=== PATIENT | female | born 1985 | race Caucasian/White ===

== ENCOUNTER 2020-02-21 12:27 | Outpatient (CLI) | payer OTHER, SELFPAY ==
--- NOTE | ~2020-02-21 | XR_ITS ---
EXAMINATION: XR foot RT standing 2V DATE: 02/21/2020 12:52 INDICATION: Unspecified osteoarthritis, unspecified site. TECHNIQUE: 2 views of right foot standing were obtained. COMPARISON: None. FINDINGS: Bone alignment is normal. No fracture. Joint spaces are well maintained. IMPRESSION: 1. Normal right foot. Reviewed, dictated and finalized at location A. IMPRESSION: 1. Normal right foot.
--- NOTE | ~2020-02-21 | XR_ITS ---
EXAMINATION: XR hand BI arthritis min 3V DATE: 02/21/2020 12:51 INDICATION: Unspecified osteoarthritis, unspecified site. TECHNIQUE: 4 views of right hand and 4 views of left hand on a total of 7 radiographs were obtained. COMPARISON: None. FINDINGS: RIGHT HAND: Bone alignment is normal. No fracture. Joint spaces are well maintained. LEFT HAND: Bone alignment is normal. No fracture. Joint spaces are well maintained. IMPRESSION: 1. No arthritis. Reviewed, dictated and finalized at location A. IMPRESSION: 1. No arthritis.
--- NOTE | ~2020-02-21 | XR_ITS ---
EXAMINATION: XR foot LT standing 2V DATE: 02/21/2020 12:52 INDICATION: Unspecified osteoarthritis, unspecified site. TECHNIQUE: 2 views of left foot were obtained. COMPARISON: None. FINDINGS: Bone alignment is normal. No fracture. Joint spaces are well maintained. IMPRESSION: 1. Normal left foot. Reviewed, dictated and finalized at location A. IMPRESSION: 1. Normal left foot.
[2020-02-21 13:32] LABS: Hematocrit 46.9 % (37.0-47.0); Hemoglobin 15.4 g/dL (12.0-15.0); Mean Corpuscular HGB Conc 32.8 g/dl (32-36); Mean Corpuscular Hemoglobin 31.2 pg (26-34); Mean Corpuscular Volume 95.1 fl (80-100); Mean Platelet Volume 12.3 fl (7.4-10.4); Platelet Count Result 136 k/mm3 (150-375); Red Blood Count 4.93 M/mm3 (4.2-5.4); White Blood Count 5.6 K/mm3 (4.5-10.0)
[2020-02-21 13:48] LABS: Alanine Aminotransferase 44 U/L (4-35); Albumin Level 5.1 g/dL (3.5-5.1); Alkaline Phosphatase 82 U/L (38-126); Aspartate Amino Transferase 38 U/L (14-36); Bilirubin,Total 0.6 mg/dL (0.2-1.3); Blood Urea Nitrogen 22 mg/dL (7-17); Calcium 9.6 mg/dL (8.4-10.2); Carbon Dioxide 27 mmol/L (22-30); Chloride 103 mmol/L (98-107); Estimated Glomerular Filt Rate > 60; Glucose 99 mg/dL (65-105); Potassium 4.6 mmol/L (3.4-5.0); Rheumatoid Factor 33.5 IU/ML (<12); Sodium 138 mmol/L (137-145); Uric Acid 4.5 mg/dL (2.5-7.5)
[2020-02-21 13:49] LABS: CRP < 0.5 mg/dL (<1.0); Uric Acid 4.5 mg/dL (2.5-7.5)
[2020-02-21 14:17] LABS: Erythrocyte Sedimentation Rate 16 mm/hr (0-20)
[2020-02-24 21:21] LABS: ANA Cascade Screen Negative (Negative)
[2020-02-25 05:27] LABS: Thyroid Peroxidase Antibodies 3 IU/mL (<9)
[2020-02-26 01:19] LABS: Thyroglobulin 7.8 ng/mL (2.8-40.9); Thyroglobulin Antibodies <1 IU/mL (<=1)
[2020-02-27 11:43] LABS: Anti Cyclic Citrullinated Pept <16 Units (<20)
== END 2020-02-21 12:28 | disposition home or self-care (01) ==
PROVIDERS: PCP Family Medicine; Visit Provider Internal Medicine
DX: M19.90 Unspecified osteoarthritis, unspecified site (principal); M79.641 Pain in right hand; M79.642 Pain in left hand
CPT/HCPCS: 36415; 73130; 73620; 80053; 84432; 84443; 84550; 85027; 85652; 86038; 86140; 86200; 86376; 86430; 86800

== ENCOUNTER 2020-09-24 10:01 | Outpatient (CLI) | payer OTHER, SELFPAY ==
--- NOTE | ~2020-09-24 | XR_ITS ---
EXAMINATION: XR knee LT 3V EXAM DATE: 09/24/2020 10:16 INDICATION: M06.041 - Rheumatoid arthritis without rheumatoid factor. TECHNIQUE: Three projections of the left knee. There is no prior study for comparison. FINDINGS: No evidence osteochondral defect or joint body in the left knee joint. There are no acute fractures or dislocations identified. There is no subcutaneous gas. The soft tissue is unremarkabl e. There are no radiopaque foreign bodies. No joint effusion. IMPRESSION: 1. Left knee exam without acute osseous findings. Reviewed, dictated and finalized at location B. NITIES TEACHER
== END 2020-09-24 10:02 | disposition home or self-care (01) ==
PROVIDERS: PCP Family Medicine; Visit Provider Internal Medicine
DX: M06.041 Rheumatoid arthritis without rheumatoid factor, right hand (principal); M06.042 Rheumatoid arthritis without rheumatoid factor, left hand
CPT/HCPCS: 73562

== ENCOUNTER 2020-10-15 10:06 | Outpatient (CLI) | payer OTHER, SELFPAY ==
--- NOTE | ~2020-10-15 | MR_ITS ---
EXAMINATION: MR hand LT wo con DATE: 10/15/2020 11:39 INDICATION: Rheumatoid arthritis without rheumatoid factor. TECHNIQUE: Magnetic resonance imaging (MRI) of the left hand was performed without intravenous contra st. Sequences included axial, coronal, and sagittal T1-weighted FSE and T2-weighted FS FSE. COMPARISON: Left hand radiograph 02/21/2020 FINDINGS: Bone alignment is normal. No fracture. Bone marrow signal intensity is normal. The joint sp aces are normal. The flexor and extensor tendons are normal. IMPRESSION: 1. Normal left hand. Reviewed, dictated and finalized at location A. ETIC TECHNICIAN IMPRESSION: 1. Normal left hand.
--- NOTE | ~2020-10-15 | MR_ITS ---
EXAMINATION: MR hand RT wo con DATE: 10/15/2020 11:40 INDICATION: Rheumatoid arthritis without rheumatoid factor. TECHNIQUE: Magnetic resonance imaging (MRI) of the right hand was performed without intravenous contr ast. Sequences included axial, coronal, and sagittal T1-weighted FSE and T2-weighted FS FSE COMPARISON: Left hand radiograph 02/21/2020 FINDINGS: Bone alignment is normal. No fracture. Bone marrow signal intensity is normal. Joint spaces are normal. The flexor and extensor tendons are normal. IMPRESSION: 1. Normal right hand. Reviewed, dictated and finalized at location A. RER PIE BAKERY IMPRESSION: 1. Normal right hand.
== END 2020-10-15 10:07 | disposition home or self-care (01) ==
PROVIDERS: PCP Family Medicine; Visit Provider Internal Medicine
DX: M06.041 Rheumatoid arthritis without rheumatoid factor, right hand (principal); M06.042 Rheumatoid arthritis without rheumatoid factor, left hand
CPT/HCPCS: 73218

== ENCOUNTER 2023-01-05 11:34 | Outpatient (CLI) | payer OTHER, SELFPAY ==
--- NOTE | ~2023-01-05 | XR_ITS ---
EXAMINATION: XR chest 2V Exam Date/Time: 01/05/2023 11:45 CDT HISTORY: PLEURITIC PAIN, T SPINE PAIN Comparison: None available. RESULT: Lines, tubes, and devices: None. Lungs and pleura: Clear. Cardiomediastinal silhouette: Stable. Other: No acute osseous or upper abdominal finding. IMPRESSION: No acute cardiopulmonary process. Reviewed, dictated and finalized at location K.
--- NOTE | ~2023-01-05 | XR_ITS ---
EXAM: XR thoracic spine 2V DATE: 01/05/2023 11:56 HISTORY: PLEURITIC PAIN, T SPINE PAIN . COMPARISON: None available. FINDINGS: Mild scoliosis. Vertebral body alignment intact. Vertebral body heights preserved. No disc space narrowing. No traumatic malalignment or fracture. Visualized lung parenchyma is clear. IMPRESSION: Mild scoliosis. No acute finding. Reviewed, dictated and finalized at location K.
== END 2023-01-05 11:35 | disposition home or self-care (01) ==
PROVIDERS: PCP Family Medicine; Visit Provider Family Medicine
DX: R07.81 Pleurodynia (principal); M54.6 Pain in thoracic spine; M41.84 Other forms of scoliosis, thoracic region
CPT/HCPCS: 71046; 72070

== ENCOUNTER → 2023-02-19 08:40 | Outpatient (CLI) | payer OTHER, SELFPAY ==
--- NOTE | ~2023-02-19 | MMUS_ITS ---
EXAMINATION: MM diagnostic hollie BI w petr, US breast BI complete HISTORY: Bilateral breast pain TECHNIQUE: Additional 3-D tomosynthesis images of the breasts were performed and synthetic 2-D images were generated. CAD analysis was submitted and interpreted. High resolution bilateral complete breas t ultrasound was performed. COMPARISON: None BREAST PARENCHYMAL COMPOSITION: The breasts are extremely dense, which lowers the sensitivity of mamm ography FINDINGS: MAMMOGRAPHIC FINDINGS: There are no suspicious masses, calcifications or architectural distortion in either breast to sugges t malignancy. ULTRASOUND: Complete bilateral US of all 4 quadrants of the breasts and retroareolar region was reviewed. In the right breast at 8:00, 4 cm from the nipple, there is a 4 mm cyst. No other discrete solid or cystic m asses are identified in either breast. No sonographic evidence for malignancy. IMPRESSION: 1. No evidence for malignancy in either breast. 2. Routine yearly screening mammogram and regular clinical breast examination are recommended. BI-RADS Category 2: Benign finding(s). Reviewed, dictated and finalized at location A. IMPRESSION: 1. No evidence for malignancy in either breast. 2. Routine yearly screening mammogram and regular clinical breast examination a re recommended. BI-RADS Category 2: Benign finding(s).
== END ==
PROVIDERS: PCP Family Medicine; Visit Provider Family Medicine
DX: N64.4 Mastodynia (principal)
CPT/HCPCS: 76641; 77062; 77066; G0279

== ENCOUNTER 2024-07-12 10:54 | Outpatient (CLI) | payer OTHER, SELFPAY ==
[2024-07-12 12:17] LABS: Cholesterol 178 mg/dL (0-200); HDL Direct 64 mg/dL; Triglycerides 47 mg/dL (<150)
[2024-07-12 12:29] LABS: LDL Cholesterol Direct 83 mg/dL
[2024-07-12 12:49] LABS: Hemoglobin A1C 5.5 % (<5.7)
== END 2024-07-12 10:55 | disposition home or self-care (01) ==
LOC: ANHLAB 10:56
PROVIDERS: PCP Family Medicine
DX: K13.70 Unspecified lesions of oral mucosa (principal); Z13.1 Encounter for screening for diabetes mellitus; Z13.220 Encounter for screening for lipoid disorders; Z13.29 Encounter for screening for other suspected endocrine disorder
CPT/HCPCS: 36415; 80061; 83036; 84443; 86695; 86696

== ENCOUNTER 2025-05-04 12:37 | Emergency (ER) | payer OTHER, SELFPAY ==
[2025-05-04] VITALS (10 sets, daily range): BP systolic 109–161; BP diastolic 72–89; PULSE 62–76; RESP 14–18; TEMP 37.2; O2SAT 97–100
--- NOTE | ~2025-05-04 | XR_ITS ---
EXAMINATION: XR chest 2V 05/04/2025 13:31 INDICATION: CP x1 week. Worsening TECHNIQUE:Frontal and lateral images of the chest were obtained. COMPARISON: 01/05/2023 FINDINGS: The lungs are clear. The cardiomediastinal silhouette is within normal limits. There are no pleural effusions. There is no pneumothorax suspected. IMPRESSION: 1: NO ACUTE CARDIOPULMONARY DISEASE. Reviewed, dictated and finalized at location Q.
--- NOTE | 2025-05-04 12:38 | ECG_ITS ---
Test Date: 2025-05-04 12:44:20 Measurements Intervals [place] Rate: 63 P: 26 [place]: 170 QRS: 83 QRSD: 78 T: 53 QT: 397 QTc: 409 Interpretive Statements SINUS RHYTHM CONSIDER ANTERIOR INFARCT, AGE INDETERMINATE BASELINE ARTIFACT- I, II, III, AVR ABNORMAL ECG No previous ECG available for comparison Electronically Signed On 05-04-2025 12:55:23 CDT by John Sheikh D.O.
[2025-05-04 13:01] LABS: Hematocrit 40.2 % (37.0-47.0); Hemoglobin 13.5 g/dL (12.0-15.0); Immature Granulocyte Percent A 0.2 % (0-0.5); Immature Platelet Fraction Pct 7.3 % (0.9-11.2); Lymphocytes Absolute Auto 1.22 K/mm3 (0.9-3.2); Mean Corpuscular HGB Conc 33.6 g/dl (32-36); Mean Corpuscular Hemoglobin 31.0 pg (26-34); Mean Corpuscular Volume 92.4 fl (80-100); Nucleated Red Blood Cells Absolute Auto 0.000 K/mm3 (0.0-0.012); Nucleated Red Blood Cells Perc 0.0 % (0.0-0.2); Platelet Count Result 135 k/mm3 (150-375); Red Blood Count 4.35 M/mm3 (4.2-5.4); White Blood Count 6.4 K/mm3 (4.5-10.0)
[2025-05-04 13:23] LABS: Alanine Aminotransferase 18 U/L (6-35); Albumin Level 4.6 g/dL (3.5-5.1); Alkaline Phosphatase 57 U/L (38-126); Anion Gap 9 mmol/L (4-12); Aspartate Amino Transferase 27 U/L (14-36); Bilirubin,Total 0.6 mg/dL (0.2-1.3); Blood Urea Nitrogen 16 mg/dL (7-17); Calcium 9.6 mg/dL (8.4-10.2); Carbon Dioxide 26 mmol/L (22-30); Chloride 102 mmol/L (98-107); Estimated Glomerular Filt Rate > 60; Glucose 96 mg/dL (65-110); Lipase 128 U/L (23-300); Potassium 3.8 mmol/L (3.4-5.0); Sodium 137 mmol/L (137-145); Total Protein 8.3 g/dL (6.3-8.2)
[2025-05-04 13:28] LABS: INR 1.1; Partial Thromboplastin Time 27.0 Seconds (22.3-36.8); Prothrombin Time 14.2 Seconds (11.1-14.7)
[2025-05-04 13:30] LABS: Troponin I < 0.012 ng/mL (0.000-0.034)
[2025-05-04] MEDS: ASPIRIN 81 MG CHEWABLE TABLET 324 MG PO (13:36)
--- OUTSIDE RECORDS SUMMARY | 2025-05-04 13:46 | XMS_ITS | Clinical Summary ---
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 Gender Identity Not on file Sexual Orientation Not on file Plan of Treatment Health Maintenance Due Date Last Done Comments Hepatitis C Virus (HCV) Screening 1984 TdaP Immunization 1984 Hepatitis B Immunization (1 of 3 - 19+ 3-dose series) 2003 Pap Smear 2005 Human Papillomavirus (HPV) Immunization (1 - 3-dose SCDM series) 2011 Cervical Cancer Screening (CCS) 2014 HPV/Cotest 2014 SARS-COV-2 Immunization ( season) 2024 10/02/2021, 01/21/2021, 12/31/2020 Influenza Immunization (#1) 05/14/202506/14, 07/24/2019, 08/17/2018, Additional history exists Respiratory Syncytial Virus (RSV) Immunization (Adult) (1 - 1-dose 75+ series) 2059 DTaP/Tdap/Td Immunization Discontinued 08/28/2014 Meningococcal Immunization (ACWY) Aged Out No longer eligible based on patient's age to complete this topic Pneumococcal Immunization Combined Aged Out No longer eligible based on patient's age to complete this topic Rotavirus Immunization Aged Out No lo nger eligible based on patient's age to complete this topic
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
== END 2025-05-04 15:55 | disposition home or self-care (01) ==
PROVIDERS: Emergency Provider Emergency Medicine
DX: R07.89 Other chest pain (principal); M06.042 Rheumatoid arthritis without rheumatoid factor, left hand; M06.041 Rheumatoid arthritis without rheumatoid factor, right hand; Z79.899 Other long term (current) drug therapy; R94.31 Abnormal electrocardiogram [ECG] [EKG]
CPT/HCPCS: 36415; 71046; 80053; 83690; 84484; 85025; 85055; 85610; 85730; 93005; 99284; A9270